=== PATIENT | male | born 1940 | race Caucasian/White ===

== ENCOUNTER 2017-04-15 00:30 | Inpatient (IN) | payer MEDICARE, OTHER ==
[~2017-04-15] VITALS: Ht 182.9 cm; Wt 62.3 kg
[~2017-04-15 00:30] MED LIST: ALBU8.5H5 INH; ASPI325T17 PO; DOXY100T PO; IPRA3AMP18 NPPB; PRAV20TA2 PO; PRED5TAB19 PO; TAMS0.4C2 PO
[2017-04-15] MEDS: ALBUTEROL/IPRATROPIUM 2.5MG/0.5MG, 3 ML NPPB SCH ×5 (00:45→15:24)
[2017-04-15] MEDS ORDERED: ALBUTEROL/IPRATROPIUM 2.5MG/0.5MG, 3 ML ONE ×2 (00:47→03:56)
[2017-04-15] MEDS ORDERED: methylPREDNISolone SOD SUCC 125 MG/2 ML ONE (00:52)
[2017-04-15] MEDS ORDERED: SODIUM CHLORIDE 0.9% 1,000ML IVBOLUS ONE (01:00)
[2017-04-15] MEDS ORDERED: SODIUM CHLORIDE FLUSH 10ML SYR IVF ONE (01:00)
[2017-04-15] MEDS ORDERED: methylPREDNISolone SOD SUCC 125 MG/2 ML IVP ONE (01:00)
[2017-04-15 01:10] LABS: HEMATOCRIT 40.2 % (39.2-51.8); HEMOGLOBIN 13.4 g/dL (13.7-18.0)
[2017-04-15] MEDS ORDERED: DIGO125T PO (01:10)
[2017-04-15] MEDS ORDERED: DILT30TA33 PO (01:10)
[2017-04-15] MEDS ORDERED: FINA1TAB16 PO (01:10)
[2017-04-15 01:21] LABS: ASPARTATE AMINO TRANSFERASE 21 U/L (15-37); BLOOD UREA NITROGEN 16 mg/dL (7-18)
[2017-04-15 01:25] LABS: IS PT STATUS REG ER OR PRE ER? YES
[2017-04-15] MEDS ORDERED: NITROGLYCERIN OINT 2%, 1GM TP ONE ×3 (02:00→02:26)
[2017-04-15] MEDS ORDERED: SODIUM CHLORIDE 0.9% 1,000 ML IV SCH (02:09)
[2017-04-15] MEDS ORDERED: HEPARIN 25,000 UNITS/500ML PMX 500 ML ONE (02:13)
[2017-04-15] MEDS ORDERED: HEPARIN 5,000 UNITS/ML, 1ML ONE (02:13)
[2017-04-15] MEDS ORDERED: HEPARIN 5,000 UNITS/ML, 1ML IV ONE (02:30)
[2017-04-15] MEDS ORDERED: TEMAZEPAM 15 MG CAPSULE PO PRN (02:30)
[2017-04-15] MEDS ORDERED: morphine SULFATE 10 MG/ML, 1ML IVPush PRN ×2 (02:30→21:30)
[2017-04-15] MEDS ORDERED: HEPARIN 25,000 UNITS/500ML PMX 500 ML IV PRN ×2 (02:30→04:30)
[2017-04-15] MEDS ORDERED: ONDANSETRON 2MG/ML, 2ML IVPush PRN ×2 (02:30→21:30)
[2017-04-15] MEDS ORDERED: ACETAMINOPHEN 325 MG TABLET PO PRN (02:30)
[2017-04-15 02:52] VITALS: BP 149/85
[2017-04-15 02:54] VITALS: BP 149/85
[2017-04-15] MEDS ORDERED: MAGNESIUM SULFATE PMX 2GM/50ML 50 ML IV ONE (04:00)
[2017-04-15] MEDS ORDERED: ALBUTEROL/IPRATROPIUM 2.5MG/0.5MG, 3 ML NPPB PRN (04:00)
[2017-04-15] MEDS ORDERED: HEPARIN 5,000 UNITS/ML, 1ML IV PRN (04:30)
[2017-04-15 05:41] LABS: IS PT STATUS REG ER OR PRE ER? NO
[2017-04-15 07:24] VITALS: BP 132/83
[2017-04-15] MEDS: TAMSULOSIN 0.4 MG CAP.ER.24H PO SCH (08:03)
[2017-04-15] MEDS: ASPIRIN 325 MG TABLET PO SCH (08:05)
[2017-04-15] MEDS: METOPROLOL TARTRATE 25 MG TABLET PO SCH ×2 (09:57→17:15)
[2017-04-15] MEDS: LISINOPRIL 5 MG TABLET PO SCH (09:58)
[2017-04-15] MEDS: NITROGLYCERIN OINT 2%, 1GM TP SCH ×2 (10:59→17:00)
[2017-04-15 11:46] LABS: IS PT STATUS REG ER OR PRE ER? NO
[2017-04-15] MEDS: CEFTRIAXONE PMX 1GM/50ML 50 ML IV SCH (12:01)
[2017-04-15] MEDS: methylPREDNISolone SOD SUCC 40 MG/ML IV SCH ×2 (12:42→20:10)
[2017-04-15] MEDS: AZITHROMYCIN 500 MG TABLET PO SCH (12:42)
[2017-04-15] MEDS ORDERED: METO25TA4 PO (13:00)
[2017-04-15] MEDS ORDERED: CLOP75TA52 PO (13:00)
[2017-04-15] MEDS ORDERED: BUDE10.2 PO (13:00)
[2017-04-15 14:00] VITALS: BP 99/56
[2017-04-15 17:19] VITALS: BP_SYST 85; BP_SYST 91; BP_DIAS 45; BP_DIAS 51
[2017-04-15] MEDS: ATORVASTATIN 80 MG TABLET PO SCH (20:10)
[2017-04-15 20:25] VITALS: BP 103/62
[2017-04-16 02:57] VITALS: BP 103/64
[2017-04-16] MEDS: METOPROLOL TARTRATE 25 MG TABLET PO SCH ×2 (05:28→17:24)
[2017-04-16] MEDS: methylPREDNISolone SOD SUCC 40 MG/ML IV SCH ×3 (05:29→20:06)
[2017-04-16 07:48] VITALS: BP 116/66
[2017-04-16] MEDS: ALBUTEROL/IPRATROPIUM 2.5MG/0.5MG, 3 ML NPPB SCH ×4 (07:50→19:52)
[2017-04-16] MEDS: TAMSULOSIN 0.4 MG CAP.ER.24H PO SCH (08:44)
[2017-04-16] MEDS: AZITHROMYCIN 500 MG TABLET PO SCH (08:44)
[2017-04-16] MEDS: ASPIRIN 325 MG TABLET PO SCH (08:44)
[2017-04-16] MEDS: LISINOPRIL 5 MG TABLET PO SCH (08:44)
[2017-04-16] MEDS ORDERED: ACETAMINOPHEN 325 MG TABLET PO PRN (10:00)
[2017-04-16] MEDS ORDERED: BISACODYL 5 MG EC TABLET PO PRN (10:00)
[2017-04-16] MEDS ORDERED: ZOLPIDEM 5MG TABLET PO PRN (10:00)
[2017-04-16] MEDS: CEFTRIAXONE PMX 1GM/50ML 50 ML IV SCH (12:28)
[2017-04-16] MEDS ORDERED: ADENOSINE 6 MG/2 ML IVPush STA (13:17)
[2017-04-16] MEDS ORDERED: ADENOSINE 6 MG/2 ML ONE (13:22)
[2017-04-16] MEDS ORDERED: ADENOSINE 6 MG/2 ML IVPush ONE (13:30)
[2017-04-16] MEDS: AMIODARONE 900 MG in DEXTROSE 5% 482 ML IV PRN ×2 (13:45→13:59)
[2017-04-16 13:50] VITALS: BP 95/56
[2017-04-16] MEDS ORDERED: FILTER 0.22 MICRON FOR AMIODARONE IV PRN (14:00)
[2017-04-16] MEDS ORDERED: AMIODARONE 150 MG in DEXTROSE 5% 100 ML IV ONE ×2 (14:00→17:30)
[2017-04-16 15:15] VITALS: BP 116/70
[2017-04-16 20:04] VITALS: BP 101/61
[2017-04-16] MEDS: ATORVASTATIN 80 MG TABLET PO SCH (20:06)
[2017-04-16] MEDS ORDERED: SODIUM CHLORIDE 0.9% 1,000 ML IV SCH (23:00)
[2017-04-17 02:02] VITALS: BP 121/61
[2017-04-17 05:30] LABS: BLOOD UREA NITROGEN 21 mg/dL (7-18)
[2017-04-17] MEDS: METOPROLOL TARTRATE 25 MG TABLET PO SCH ×2 (05:33→17:58)
[2017-04-17 05:34] LABS: HEMATOCRIT 32.2 % (39.2-51.8); HEMOGLOBIN 11.1 g/dL (13.7-18.0); WHITE BLOOD COUNT 8.4 x10^3/uL (3.4-10)
[2017-04-17 06:38] VITALS: BP 120/66
[2017-04-17] MEDS: ALBUTEROL/IPRATROPIUM 2.5MG/0.5MG, 3 ML NPPB SCH ×4 (06:44→19:17)
[2017-04-17] MEDS: methylPREDNISolone SOD SUCC 40 MG/ML IV SCH ×2 (09:41→19:40)
[2017-04-17] MEDS: TAMSULOSIN 0.4 MG CAP.ER.24H PO SCH (09:42)
[2017-04-17] MEDS: AZITHROMYCIN 500 MG TABLET PO SCH (09:42)
[2017-04-17] MEDS: LISINOPRIL 5 MG TABLET PO SCH (09:42)
[2017-04-17] MEDS: ASPIRIN 325 MG TABLET PO SCH (09:42)
[2017-04-17] MEDS: CEFTRIAXONE PMX 1GM/50ML 50 ML IV SCH (12:02)
[2017-04-17 13:08] VITALS: BP 116/59
[2017-04-17] MEDS ORDERED: LIDOCAINE 2%, 20ML ONE (14:39)
[2017-04-17] MEDS ORDERED: TICAGRELOR 90 MG TABLET ONE (14:39)
[2017-04-17] MEDS ORDERED: FENTANYL PF 100 MCG/2ML ONE (14:39)
[2017-04-17] MEDS ORDERED: VERAPAMIL 2.5 MG/ML, 2ML ONE (14:39)
[2017-04-17] MEDS ORDERED: BIVALIRUDIN 250 MG ONE (14:39)
[2017-04-17] MEDS ORDERED: MIDAZOLAM 1 MG/ML, 5ML ONE (14:39)
[2017-04-17] MEDS ORDERED: HEPARIN 1,000 UNITS/ML, 10ML ONE (14:40)
[2017-04-17] MEDS: SODIUM CHLORIDE 0.9% 1,000 ML IV SCH ×2 (15:39→19:34)
[2017-04-17 17:55] VITALS: BP 107/50
[2017-04-17] MEDS: ATORVASTATIN 80 MG TABLET PO SCH (19:40)
[2017-04-17] MEDS: AMIODARONE 900 MG in DEXTROSE 5% 482 ML IV PRN (19:41)
[2017-04-17 20:04] VITALS: BP 96/57
[2017-04-18 05:21] VITALS: BP 138/65
[2017-04-18] MEDS: METOPROLOL TARTRATE 25 MG TABLET PO SCH ×2 (05:32→17:12)
[2017-04-18] MEDS: ALBUTEROL/IPRATROPIUM 2.5MG/0.5MG, 3 ML NPPB SCH ×4 (06:50→20:51)
[2017-04-18 07:42] VITALS: BP 109/63
[2017-04-18] MEDS ORDERED: CLOPIDOGREL 75 MG TABLET ONE (08:50)
[2017-04-18] MEDS ORDERED: AMIODARONE 200 MG TABLET ONE (08:50)
[2017-04-18] MEDS: APIXABAN 5 MG TABLET PO SCH ×2 (08:52→20:09)
[2017-04-18] MEDS: AZITHROMYCIN 500 MG TABLET PO SCH (08:52)
[2017-04-18] MEDS: LISINOPRIL 5 MG TABLET PO SCH (08:52)
[2017-04-18] MEDS: TAMSULOSIN 0.4 MG CAP.ER.24H PO SCH (08:52)
[2017-04-18] MEDS: CLOPIDOGREL 75 MG TABLET PO SCH (08:52)
[2017-04-18] MEDS ORDERED: AMIODARONE 200 MG TABLET PO SCH (10:00)
[2017-04-18] MEDS ORDERED: METOPROLOL TARTRATE 25 MG TABLET ONE (11:29)
[2017-04-18] MEDS: CEFTRIAXONE PMX 1GM/50ML 50 ML IV SCH (12:29)
[2017-04-18 13:20] VITALS: BP 91/61
[2017-04-18 13:42] VITALS: BP 114/67
[2017-04-18] MEDS ORDERED: METOPROLOL TARTRATE 25 MG TABLET PO SCH (18:00)
[2017-04-18 18:41] VITALS: BP 106/65
[2017-04-18] MEDS: ATORVASTATIN 80 MG TABLET PO SCH (20:09)
[2017-04-19 04:35] VITALS: BP 111/54
[2017-04-19] MEDS: METOPROLOL TARTRATE 25 MG TABLET PO SCH ×2 (04:38→17:06)
[2017-04-19 05:04] LABS: BLOOD UREA NITROGEN 19 mg/dL (7-18)
[2017-04-19] MEDS: ALBUTEROL/IPRATROPIUM 2.5MG/0.5MG, 3 ML NPPB SCH ×3 (07:00→14:09)
[2017-04-19 07:15] VITALS: BP 137/65
[2017-04-19] MEDS ORDERED: AMIODARONE 900 MG in DEXTROSE 5% 482 ML IV PRN (08:00)
[2017-04-19] MEDS ORDERED: FILTER 0.22 MICRON FOR AMIODARONE IV PRN (08:30)
[2017-04-19] MEDS: APIXABAN 5 MG TABLET PO SCH ×2 (08:31→20:35)
[2017-04-19] MEDS: TAMSULOSIN 0.4 MG CAP.ER.24H PO SCH (08:31)
[2017-04-19] MEDS: CLOPIDOGREL 75 MG TABLET PO SCH (08:32)
[2017-04-19] MEDS: LISINOPRIL 5 MG TABLET PO SCH (08:32)
[2017-04-19] MEDS: AZITHROMYCIN 500 MG TABLET PO SCH (08:32)
[2017-04-19] MEDS: AMIODARONE 200 MG TABLET PO SCH ×2 (10:48→20:35)
[2017-04-19 14:00] VITALS: BP 105/63
[2017-04-19] MEDS ORDERED: FILTER 0.22 MICRON IV ONE ×2 (16:00)
[2017-04-19] MEDS ORDERED: AMIODARONE 150 MG in DEXTROSE 5% 100 ML IV ONE (16:00)
[2017-04-19] MEDS: CEFTRIAXONE PMX 1GM/50ML 50 ML IV SCH (16:13)
[2017-04-19 17:15] VITALS: BP 90/50
[2017-04-19 19:52] VITALS: BP 128/68
[2017-04-19] MEDS: ATORVASTATIN 80 MG TABLET PO SCH (20:35)
[2017-04-20 02:00] VITALS: BP 130/53
[2017-04-20] MEDS: METOPROLOL TARTRATE 25 MG TABLET PO SCH ×3 (06:11→17:44)
[2017-04-20] MEDS ORDERED: ALBUTEROL/IPRATROPIUM 2.5MG/0.5MG, 3 ML NPPB PRN (07:00)
[2017-04-20 08:11] VITALS: BP 116/74
[2017-04-20] MEDS: TAMSULOSIN 0.4 MG CAP.ER.24H PO SCH (08:13)
[2017-04-20] MEDS: APIXABAN 5 MG TABLET PO SCH ×2 (08:13→19:56)
[2017-04-20] MEDS: AMIODARONE 200 MG TABLET PO SCH ×2 (08:13→19:56)
[2017-04-20] MEDS: CLOPIDOGREL 75 MG TABLET PO SCH (08:13)
[2017-04-20] MEDS: LISINOPRIL 5 MG TABLET PO SCH (08:13)
[2017-04-20] MEDS ORDERED: PROPOFOL 10 MG/ML, 20ML ONE (12:02)
[2017-04-20 13:54] VITALS: BP 106/60
[2017-04-20] MEDS: CEFTRIAXONE PMX 1GM/50ML 50 ML IV SCH (16:25)
[2017-04-20 17:13] VITALS: BP 89/55
[2017-04-20 17:36] VITALS: BP 122/78
[2017-04-20] MEDS ORDERED: POLYETHYLENE GLYCOL 17 GM PACKET NG PRN (18:00)
[2017-04-20 19:20] VITALS: BP 122/84
[2017-04-20] MEDS: ATORVASTATIN 80 MG TABLET PO SCH (19:56)
[2017-04-21 00:51] VITALS: BP 138/77
[2017-04-21] MEDS: METOPROLOL TARTRATE 25 MG TABLET PO SCH ×2 (05:59→17:17)
[2017-04-21 07:58] VITALS: BP 138/72
[2017-04-21] MEDS: APIXABAN 5 MG TABLET PO SCH ×2 (09:26→20:16)
[2017-04-21] MEDS: CLOPIDOGREL 75 MG TABLET PO SCH (09:26)
[2017-04-21] MEDS: TAMSULOSIN 0.4 MG CAP.ER.24H PO SCH (09:26)
[2017-04-21] MEDS: LISINOPRIL 5 MG TABLET PO SCH (09:26)
[2017-04-21] MEDS: AMIODARONE 200 MG TABLET PO SCH ×2 (09:26→20:16)
[2017-04-21] MEDS ORDERED: AMIO200T42 PO (13:19)
[2017-04-21] MEDS ORDERED: APIX5TAB PO (13:19)
[2017-04-21] MEDS ORDERED: ATOR-2 PO (13:19)
[2017-04-21] MEDS ORDERED: LISI5TAB7 PO (13:19)
[2017-04-21] MEDS ORDERED: METO25TA35 PO (13:19)
[2017-04-21] MEDS ORDERED: SILVER NITRATE STICK TP ONE (13:37)
[2017-04-21 13:39] VITALS: BP 140/63
[2017-04-21] MEDS ORDERED: SPIR25TA PO (15:27)
[2017-04-21] MEDS: CEFTRIAXONE PMX 1GM/50ML 50 ML IV SCH (17:19)
[2017-04-21] MEDS: SODIUM CHLORIDE 0.9% 1,000 ML IV SCH (17:25)
[2017-04-21 18:24] LABS: HEMATOCRIT 38.8 % (39.2-51.8); HEMOGLOBIN 12.9 g/dL (13.7-18.0)
[2017-04-21 19:45] VITALS: BP 113/69
[2017-04-21] MEDS: SPIRONOLACTONE 25 MG TABLET PO SCH (20:16)
[2017-04-21] MEDS: ATORVASTATIN 80 MG TABLET PO SCH (20:16)
[2017-04-21 20:23] VITALS: BP 128/73
[2017-04-22] MEDS: SODIUM CHLORIDE 0.9% 1,000 ML IV SCH ×2 (00:10→06:11)
[2017-04-22 01:51] VITALS: BP 122/72
[2017-04-22 05:18] LABS: HEMATOCRIT 36.9 % (39.2-51.8); HEMOGLOBIN 12.5 g/dL (13.7-18.0); WHITE BLOOD COUNT 9.3 x10^3/uL (3.4-10)
[2017-04-22 05:38] LABS: BLOOD UREA NITROGEN 21 mg/dL (7-18)
[2017-04-22] MEDS: METOPROLOL TARTRATE 25 MG TABLET PO SCH (06:11)
[2017-04-22 07:44] VITALS: BP 133/73
[2017-04-22] MEDS: TAMSULOSIN 0.4 MG CAP.ER.24H PO SCH (09:38)
[2017-04-22] MEDS: AMIODARONE 200 MG TABLET PO SCH (09:38)
[2017-04-22] MEDS: SPIRONOLACTONE 25 MG TABLET PO SCH (09:38)
[2017-04-22] MEDS: LISINOPRIL 5 MG TABLET PO SCH (09:39)
[2017-04-22] MEDS: CLOPIDOGREL 75 MG TABLET PO SCH (09:44)
[2017-04-22] MEDS: APIXABAN 5 MG TABLET PO SCH (09:45)
== END 2017-04-22 14:23 | disposition home health service (06) | DRG 280 ==
LOC: ED 00:57 → EDIP 02:50 → 5SO 02:55
PROVIDERS: ADMIT Internal Medicine; ATTEND Internal Medicine
PROC: 0T9B70Z Drainage of Bladder with Drainage Device, Via Natural or Artificial Opening (ICD-10-PCS; principal; 2017-04-15)
PROC: 4A023N7 Measurement of Cardiac Sampling and Pressure, Left Heart, Percutaneous Approach (ICD-10-PCS; 2017-04-17)
PROC: B2111ZZ Fluoroscopy of Multiple Coronary Arteries using Low Osmolar Contrast (ICD-10-PCS; 2017-04-17)
PROC: B2151ZZ Fluoroscopy of Left Heart using Low Osmolar Contrast (ICD-10-PCS; 2017-04-17)
PROC: 5A2204Z Restoration of Cardiac Rhythm, Single (ICD-10-PCS; 2017-04-20)
DX: I21.4 Non-ST elevation (NSTEMI) myocardial infarction (principal); J96.20 Acute and chronic respiratory failure, unspecified whether with hypoxia or hypercapnia; E87.1 Hypo-osmolality and hyponatremia; I50.22 Chronic systolic (congestive) heart failure; J44.1 Chronic obstructive pulmonary disease with (acute) exacerbation; N39.0 Urinary tract infection, site not specified; I42.9 Cardiomyopathy, unspecified; I48.92 Unspecified atrial flutter; I11.0 Hypertensive heart disease with heart failure; I73.9 Peripheral vascular disease, unspecified; D72.829 Elevated white blood cell count, unspecified; E78.5 Hyperlipidemia, unspecified; I25.10 Atherosclerotic heart disease of native coronary artery without angina pectoris; I48.91 Unspecified atrial fibrillation; N40.0 Benign prostatic hyperplasia without lower urinary tract symptoms; R73.01 Impaired fasting glucose; R33.9 Retention of urine, unspecified; B95.2 Enterococcus as the cause of diseases classified elsewhere; Z79.82 Long term (current) use of aspirin; Z80.8 Family history of malignant neoplasm of other organs or systems; Z87.891 Personal history of nicotine dependence; Z88.0 Allergy status to penicillin; Z99.81 Dependence on supplemental oxygen
CPT/HCPCS: 36415; 71010; 80048; 80053; 80061; 81001; 82040; 83880; 84443; 84484; 85014; 85018; 85025; 85520; 85610; 85730; 87040; 87077; 87086; 87186; 92960; 93005; 93306; 93458; 93922; 93925; 93978; 94640; 96361; 96365; 96375; 99156; C1760; C1894; J0583; J0696; J1644; J2250; J2704; J3010; J3490; J7620; J0282; J2920; J2930; J3475; J7030; J7060; J7512; Q9967